=== PATIENT | male | born 1945 | race Caucasian/White ===

== ENCOUNTER → 2019-12-02 09:03 | Outpatient (BNVA) | payer MEDICARE, SELFPAY | PROVIDERS: Family Provider Family Medicine; PCP Nurse Practitioner Family; Visit Provider Nurse Practitioner Family | DX: Z00.00 Encounter for general adult medical examination without abnormal findings (principal); Z12.5 Encounter for screening for malignant neoplasm of prostate; Z13.220 Encounter for screening for lipoid disorders | CPT/HCPCS: 80061; G0103 ==

== ENCOUNTER → 2020-03-16 09:20 | Outpatient (BNVA) | payer MEDICARE, SELFPAY | PROVIDERS: Family Provider Family Medicine; PCP Nurse Practitioner Family; Visit Provider Nurse Practitioner Family | DX: M19.90 Unspecified osteoarthritis, unspecified site (principal); M19.042 Primary osteoarthritis, left hand; R53.83 Other fatigue; M25.50 Pain in unspecified joint; M19.032 Primary osteoarthritis, left wrist | CPT/HCPCS: 80048; 84550 ==

== ENCOUNTER → 2020-05-19 11:12 | Outpatient (BNVA) | payer MEDICARE, SELFPAY | PROVIDERS: Family Provider Family Medicine; PCP Nurse Practitioner Family; Visit Provider Registered Nurse | DX: C44.91 Basal cell carcinoma of skin, unspecified (principal) | CPT/HCPCS: 88305 ==

== ENCOUNTER → 2020-06-27 10:54 | Outpatient (BNVA) | payer MEDICARE, SELFPAY | PROVIDERS: Family Provider Family Medicine; PCP Nurse Practitioner Family; Visit Provider Dermatology | DX: C44.91 Basal cell carcinoma of skin, unspecified (principal); L57.0 Actinic keratosis; Z85.828 Personal history of other malignant neoplasm of skin | CPT/HCPCS: 17004; 99203 ==

== ENCOUNTER → 2020-07-08 10:00 | Outpatient (BNVA) | payer MEDICARE, SELFPAY | PROVIDERS: Family Provider Family Medicine; PCP Nurse Practitioner Family; Visit Provider Nurse Practitioner Family | DX: E07.9 Disorder of thyroid, unspecified (principal); R53.83 Other fatigue; Z12.5 Encounter for screening for malignant neoplasm of prostate; Z85.46 Personal history of malignant neoplasm of prostate | CPT/HCPCS: 80048; 84153; 84443; 85025 ==

== ENCOUNTER → 2020-07-13 09:48 | Outpatient (BNVA) | payer MEDICARE, SELFPAY | PROVIDERS: Family Provider Family Medicine; PCP Nurse Practitioner Family; Visit Provider Dermatology | DX: C44.91 Basal cell carcinoma of skin, unspecified (principal); D48.9 Neoplasm of uncertain behavior, unspecified | CPT/HCPCS: 11642; 12052; 88304; 88305 ==

== ENCOUNTER → 2020-07-26 07:55 | Outpatient (BNVA) | payer MEDICARE, SELFPAY | PROVIDERS: Family Provider Family Medicine; PCP Nurse Practitioner Family; Visit Provider Dermatology | DX: Z48.02 Encounter for removal of sutures (principal) | CPT/HCPCS: 99024 ==

== ENCOUNTER → 2020-12-26 09:55 | Outpatient (BNVA) | payer MEDICARE, SELFPAY | PROVIDERS: Family Provider Family Medicine; PCP Nurse Practitioner Family; Visit Provider Nurse Practitioner Family | DX: R53.83 Other fatigue (principal); C61 Malignant neoplasm of prostate; R35.1 Nocturia; R68.89 Other general symptoms and signs | CPT/HCPCS: 80048; 84443; G0103 ==

== ENCOUNTER → 2020-12-28 09:32 | Outpatient (BNVA) | payer MEDICARE, SELFPAY | PROVIDERS: Family Provider Family Medicine; PCP Nurse Practitioner Family; Visit Provider Nurse Practitioner Family | DX: R53.83 Other fatigue (principal); C61 Malignant neoplasm of prostate; R35.1 Nocturia; R68.89 Other general symptoms and signs | CPT/HCPCS: 80061 ==

== ENCOUNTER → 2021-05-08 14:43 | Outpatient (BNVA) | payer MEDICARE, SELFPAY | PROVIDERS: Family Provider Family Medicine; PCP Nurse Practitioner Family; Visit Provider Nurse Practitioner Family | DX: M25.50 Pain in unspecified joint (principal); M10.9 Gout, unspecified | CPT/HCPCS: 84550 ==

== ENCOUNTER → 2021-05-23 16:43 | Outpatient (BNVA) | payer MEDICARE, SELFPAY | PROVIDERS: Family Provider Family Medicine; PCP Nurse Practitioner Family; Visit Provider Nurse Practitioner Family | DX: Z20.822 Contact with and (suspected) exposure to COVID-19 (principal) | CPT/HCPCS: 87635 ==

== ENCOUNTER → 2021-06-26 08:49 | Outpatient (BNVA) | payer MEDICARE, SELFPAY | PROVIDERS: Family Provider Family Medicine; PCP Nurse Practitioner Family; Visit Provider Nurse Practitioner Family | DX: R53.83 Other fatigue (principal); C61 Malignant neoplasm of prostate; J01.01 Acute recurrent maxillary sinusitis | CPT/HCPCS: 85025; 86665; G0103 ==

== ENCOUNTER → 2021-07-04 10:56 | Outpatient (BNVA) | payer MEDICARE, SELFPAY | PROVIDERS: Family Provider Family Medicine; PCP Nurse Practitioner Family; Visit Provider Nurse Practitioner Family | DX: R53.83 Other fatigue (principal); R06.02 Shortness of breath; R05 Cough; T50.B95A Adverse effect of other viral vaccines, initial encounter | CPT/HCPCS: 80053; 86140 ==

== ENCOUNTER → 2021-07-06 10:07 | Outpatient (BNVA) | payer MEDICARE, SELFPAY | PROVIDERS: Family Provider Family Medicine; PCP Nurse Practitioner Family; Visit Provider Nurse Practitioner Family | DX: J12.82 Pneumonia due to coronavirus disease 2019 (principal); R06.02 Shortness of breath; R53.83 Other fatigue; T50.B95A Adverse effect of other viral vaccines, initial encounter; U07.1 COVID-19 | CPT/HCPCS: 87635 ==

== ENCOUNTER 2021-07-28 13:10 | Outpatient (CLI) | payer MEDICARE, SELFPAY ==
--- NOTE | 2021-07-28 13:30 | USCV_ITS ---
Abhijit Perez Age: 76 Gender: M : 1945 Exam Date: 07/28/2021 13:30 Ordering Phys: Jimenez Rodriguez M.D ([email or web address]) Technologist: Exam Location: [facility] [place] Indication: HISTORY: VARICOSE VEINS PROCEDURES: The venous duplex Doppler examination of both lower extremities was performed in the standard fashion. Venous duplex imaging was performed in only the left lower extremity. The following venous structures were evaluated: common femoral vein,the greater saphenous vein, superficial femoral vein, and the popliteal vein and ptv.serial compression, augmentation maneuvers, and spectral Doppler flow evaluation were performed. An evaluation for venous insufficiency was also completed. FINDINGS: All deep veins demonstrated compressibility without evidence of intraluminal thrombus or increased echogenicity. Significant venous reflux were noted in the greater saphenous vein segments bilaterally CONCLUSIONS 1. No evidence of DVT in the above-mentioned identifiable veins. 2. Significant venous reflux of greater than 500 ms were noted at the distal and below-knee greater saphenous vein segments on the right side. These venous segments were measuring 0.37 and 0.39 cm in diameter, at a depth of 1.81 and 1.14 cm respectively. 3. Significant venous reflux of greater than 500 ms were noted throughout the greater saphenous vein segments on the left side. The reflux time we are waiting anywhere from 794 to 3080 ms. The venous segments were measuring anywhere from 0.37 to 0.74 cm in diameter. All the above knee segments were greater than 1 cm deep from the surface. 4. No significant venous reflux were noted in the small saphenous veins on both sides Dr Austin Holland MD [facility] (Electronically Signed) Final Date: 31 July 2021 09:41 S
== END 2021-07-28 13:11 | disposition home or self-care (01) ==
LOC: US 13:15
PROVIDERS: PCP Nurse Practitioner Family; Visit Provider Internal Medicine
DX: I83.90 Asymptomatic varicose veins of unspecified lower extremity (principal); I87.2 Venous insufficiency (chronic) (peripheral)
CPT/HCPCS: 93970

== ENCOUNTER → 2021-10-09 14:48 | Outpatient (BNVA) | payer MEDICARE, SELFPAY | PROVIDERS: PCP Family Medicine; Visit Provider Nurse Practitioner Family | DX: L02.31 Cutaneous abscess of buttock (principal); L03.317 Cellulitis of buttock | CPT/HCPCS: 87070 ==

== ENCOUNTER → 2021-12-27 09:07 | Outpatient (BNVA) | payer MEDICARE, SELFPAY | PROVIDERS: PCP Nurse Practitioner Family; Visit Provider Nurse Practitioner Family | DX: C61 Malignant neoplasm of prostate (principal); R39.9 Unspecified symptoms and signs involving the genitourinary system; M10.9 Gout, unspecified; I10 Essential (primary) hypertension | CPT/HCPCS: 80053; 81000; G0103 ==

== ENCOUNTER → 2022-05-11 08:40 | Outpatient (BNVA) | payer MEDICARE, SELFPAY | PROVIDERS: PCP Nurse Practitioner Family; Visit Provider Internal Medicine | DX: I87.2 Venous insufficiency (chronic) (peripheral) (principal) | CPT/HCPCS: 99214 ==

== ENCOUNTER → 2022-06-27 11:08 | Outpatient (BNVA) | payer MEDICARE, SELFPAY | PROVIDERS: PCP Nurse Practitioner Family; Visit Provider Nurse Practitioner Family | DX: Z12.5 Encounter for screening for malignant neoplasm of prostate (principal); R53.83 Other fatigue | CPT/HCPCS: 80053; G0103 ==

== ENCOUNTER → 2022-12-28 08:35 | Outpatient (BNVA) | payer MEDICARE, SELFPAY | PROVIDERS: PCP Nurse Practitioner Family; Visit Provider Nurse Practitioner Family | DX: Z12.5 Encounter for screening for malignant neoplasm of prostate (principal) | CPT/HCPCS: G0103 ==

== ENCOUNTER → 2023-01-25 09:59 | Outpatient (BNVA) | payer MEDICARE, SELFPAY | PROVIDERS: PCP Nurse Practitioner Family; Referring Provider Nurse Practitioner Family; Visit Provider Student in an Organized Health Care Education/Training Program | DX: M75.41 Impingement syndrome of right shoulder (principal); M75.81 Other shoulder lesions, right shoulder | CPT/HCPCS: 20610; 73030; 99204; J1040 ==

== ENCOUNTER → 2023-02-18 12:59 | Outpatient (BNVA) | payer MEDICARE, SELFPAY | PROVIDERS: PCP Nurse Practitioner Family; Visit Provider Student in an Organized Health Care Education/Training Program | DX: M75.41 Impingement syndrome of right shoulder (principal); M75.81 Other shoulder lesions, right shoulder | CPT/HCPCS: 99213 ==

== ENCOUNTER → 2023-04-24 11:26 | Outpatient (BNVA) | payer MEDICARE, SELFPAY | PROVIDERS: PCP Nurse Practitioner Family; Visit Provider Nurse Practitioner Family | DX: L81.4 Other melanin hyperpigmentation (principal); D22.5 Melanocytic nevi of trunk; Z71.89 Other specified counseling; L85.3 Xerosis cutis; L57.8 Other skin changes due to chronic exposure to nonionizing radiation; L57.0 Actinic keratosis; Z85.828 Personal history of other malignant neoplasm of skin | CPT/HCPCS: 17000; 17003; 99213 ==

== ENCOUNTER → 2023-05-27 14:33 | Outpatient (BNVA) | payer MEDICARE, SELFPAY | PROVIDERS: PCP Nurse Practitioner Family; Visit Provider Student in an Organized Health Care Education/Training Program | DX: M19.011 Primary osteoarthritis, right shoulder (principal); M75.101 Unspecified rotator cuff tear or rupture of right shoulder, not specified as traumatic | CPT/HCPCS: 99213 ==

== ENCOUNTER 2023-06-17 09:14 | Outpatient (CLI) | payer MEDICARE, SELFPAY ==
--- NOTE | 2023-06-17 09:30 | MR_ITS ---
WS: [id number] MRI RIGHT SHOULDER NONCONTRAST TECHNIQUE: Sagittal T2, coronal T1, T2 and proton density imaging. Axial gradient PDE imaging. CLINICAL INFORMATION: right shoulder pain, rule out rotator cuff COMPARISON: Radiograph January 25, 2023 FINDINGS: Moderate to advanced degenerative arthritis AC joint. Subacromial spurring. Small amount of subacromi al subdeltoid fluid. Impingement on the distal supraspinatus. Tendinopathy involving supraspinatus. I nsertional tear distal supraspinatus. Tendinopathy infraspinatus with small undersurface tear. Normal subscapularis. Normal biceps tendon in the bicipital groove. Normal biceps labral anchor. Dege nerative fraying involving the glenoid labrum. Advanced narrowing at the glenohumeral articulation. F luid in the subcoracoid bursa. Biceps tendon appears intact within the bicipital groove. MR/MR shoulder RT wo con* [id number] IMPRESSION: 1. 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 2. Impingement of the distal supraspinatus with tendinopathy. Insertional tear distal supraspinatus. 3. Small undersurface tear distal infraspinatus with tendinopathy. 4. Teres minor and subscapularis appear intact. 5. Biceps tendon appears intact in the bicipital groove. 6. Advanced degenerative narrowing at the glenohumeral articulation.
== END 2023-06-17 09:15 | disposition home or self-care (01) ==
PROVIDERS: PCP Nurse Practitioner Family; Visit Provider Student in an Organized Health Care Education/Training Program
DX: M19.011 Primary osteoarthritis, right shoulder (principal); M75.101 Unspecified rotator cuff tear or rupture of right shoulder, not specified as traumatic; S46.811A Strain of other muscles, fascia and tendons at shoulder and upper arm level, right arm, initial encounter; X58.XXXA Exposure to other specified factors, initial encounter
CPT/HCPCS: 73221

== ENCOUNTER → 2023-06-18 15:02 | Outpatient (BNVA) | payer MEDICARE, SELFPAY | PROVIDERS: PCP Nurse Practitioner Family; Visit Provider Nurse Practitioner Family | DX: D48.5 Neoplasm of uncertain behavior of skin (principal) | CPT/HCPCS: 11102; 17000; 99213 ==

== ENCOUNTER → 2023-06-25 09:11 | Outpatient (BNVA) | payer MEDICARE, SELFPAY | PROVIDERS: PCP Nurse Practitioner Family; Visit Provider Nurse Practitioner Family | DX: E78.5 Hyperlipidemia, unspecified (principal); Z12.5 Encounter for screening for malignant neoplasm of prostate; M75.101 Unspecified rotator cuff tear or rupture of right shoulder, not specified as traumatic; M19.011 Primary osteoarthritis, right shoulder; M75.41 Impingement syndrome of right shoulder | CPT/HCPCS: 80053; 80061; 99214; G0103 ==

== ENCOUNTER → 2023-07-04 09:49 | Outpatient (BNVA) | payer MEDICARE, SELFPAY | PROVIDERS: PCP Nurse Practitioner Family; Visit Provider Clinical Nurse Specialist Adult Health | DX: Z01.818 Encounter for other preprocedural examination (principal); E78.5 Hyperlipidemia, unspecified | CPT/HCPCS: 85025 ==

== ENCOUNTER → 2023-07-08 09:53 | Outpatient (BNVA) | payer MEDICARE, SELFPAY | PROVIDERS: PCP Nurse Practitioner Family; Visit Provider Dermatology | DX: C44.329 Squamous cell carcinoma of skin of other parts of face (principal) | CPT/HCPCS: 12052; 17311 ==

== ENCOUNTER 2023-07-10 06:12 | Day surgery (SDC) | payer MEDICARE, SELFPAY ==
[2023-07-09 12:01] VITALS: BMI 32.1
[2023-07-10] VITALS (11 sets, daily range): BP systolic 140–196; BP diastolic 76–83; PULSE 55–88; RESP 15–20; TEMP 36.1–36.6; O2SAT 93–100
[2023-07-10] MEDS: sodium chloride 0.9% 1,000 ML 30 ML IV (07:02)
[2023-07-10] MEDS: acetaminophen 1,000 MG/100 ML PIGGYBACK 400 MG IV (07:02)
[2023-07-10] MEDS: ketorolac 30 mg/mL INJ IVP (07:03)
--- NOTE | 2023-07-10 07:09 | ANES.PREANE2 ---
Pre-Anesthetic Assessment Height/Weight: Height 1.84 m Weight 108.862 kg Temp Pulse Resp BP Pulse Ox O2 Del Method 97.4 F L 70 16 140/77 98 Room Air 07/10/23 06:49 07/10/23 06:49 07/10/23 06:49 07/10/23 06:49 07/10/23 06:49 07/10/23 06:49 Preop Diagnosis: Right shoulder rotator cuff tear, subacromial impingment bursitis, ac joint Operation Date: 07/10/23 08:05 Proposed Procedures p RIGHT SHOULDER DIAGNOSTIC AND SURGICAL SUBACROMIAL DECOMPRESSION,ACROMIOCLAVICULAR RESECTION ROTATOR CUFF REPAIR [id number],M75.101,M19.019(Right) - German Yareli, DO s Subacromial Decompression(Right) - German Yareli, DO s AC Joint Resection Acromioclavicular Joint Resection(Right) - German [place], DO s Rotator Cuff Repair - Arthroscopy(Right) - German Yareli DO Familial anesthetic complications: none Was Beta Lars taken within 24 hours: N/A Was Clonidine taken within 24 hours: N/A Last intake: Intake Last Liquid Date 07/09/23 Last Liquid Time 17:00 Last Solid Date 07/09/23 Last Solid Time 17:00 Social No alcohol and No tobacco Exam alert, oriented x 3, clear to auscultation bilaterally and regular rate & rhythm Airway Submandibular: within normal limits Cervical ROM: within normal limits Mallampati: Class II Dentition: full Metabolic Hyperlipidemia Musc/[facility] Osteoarthritis/DJD Anesthetic Plan ASA status: 2 Anesthesia: General and Regional (specify below) (right interscalene) Medications/Allergies Home Medications Medication Instructions Recorded Confirmed Last Taken Type ibuprofen 600 mg tablet 600 mg PO Q8H PRN pain #60 tabs 03/16/20 07/09/23 Unknown Rx vit C 250 mg-vit E 200 unit-zinc 1 cap PO DAILY 06/27/20 07/09/23 07/04/23 History ox 12.5 [id number] capsule (ICaps AREDS2) acetaminophen 325 mg capsule 325 mg PO QID PRN Pain 06/25/23 07/09/23 07/08/23 History (Tylenol) naproxen sodium 220 mg tablet 220 mg PO BID PRN Pain 07/04/23 07/09/23 Unknown History (Aleisabel) pseudoephedrine HCl 30 mg tablet 30 mg PO Q6H 07/09/23 07/09/23 07/09/23 History hydrocodone 5 mg-acetaminophen 325 1 tab PO Q6H PRN pain 5 days #20 07/10/23 Unknown Rx mg tablet tabs ondansetron 4 mg disintegrating 4 mg PO Q8H PRN nausea and 07/10/23 Unknown Rx tablet vomiting 3 days #9 tabs Allergies Allergy/AdvReac Type Severity Reaction Status Date / Time finasteride Allergy Unknown Verified 07/04/23 09:05 Current Medications Generic Name Dose Route Start Last Admin Trade Name Freq PRN Reason Stop Dose Admin Sodium Chloride 1,000 mls @ 30 mls/hr 07/10/23 06:45 07/10/23 07:02 Sodium Chloride 0.9% IV 07/11/23 06:44 30 mls/hr .Q24H MEDINA Administration PFSH Anesthesia Medical History History of nonmelanoma skin cancer Prostate CA Surgical History (Updated 07/04/23 @ 09:16 by Carson Heath NP) History of ankle surgery History of back surgery History of suburethral sling procedure Hx of knee surgery Hx of radical prostatectomy Hx of vein stripping had veins glued together Family History (Updated 07/04/23 @ 09:15 by Carson Heath NP) Family/Other CAD (coronary artery disease) Lung disease Sister CAD (coronary artery disease) Brother CAD (coronary artery disease) Mother Hypertension Lung disease Other Cancer Denies family history of Diabetes Clotting disorder Dementia Chronic kidney disease (CKD) Anesthesia complication Bleeding disorder Stroke Social History Smoking and tobacco status: never smoked Alcohol intake: never Substance/Drug Use: never Adopted: No Lives independently: Yes Household members: spouse Housing: House Marital status: Data Anesthesia Cardiac Studies: No Data to Display
--- NOTE | 2023-07-10 07:51 | P.HPUD_ITS ---
Surgery/Procedure H&P Update DATE OF PROCEDURE: July 10, 2023 DATE H&P PERFORMED: 06/25/23 CHANGES TO PREVIOUS DOCUMENTATION: None. No change in HPI from office visit on 06/25/2023. Patient understands risk benefits complication alternatives surgery elects proceed with surgical intervention of her right shoulder diagnostic and surgical arthroscopy with subacromial decompression and AC joint resection, rotator cuff repair. Patient understands and agrees with current plan. All questions answered. PREOP DIAGNOSIS: Right shoulder rotator cuff tear, subacromial impingment bursitis, ac joint PRIMARY INDICATION FOR PROCEDURE: Right shoulder rotator cuff tear, subacromial impingement bursitis, AC joint arthritis PLANNED PROCEDURE: Operation Date: 07/10/23 08:05 Proposed Procedures p RIGHT SHOULDER DIAGNOSTIC AND SURGICAL SUBACROMIAL DECOMPRESSION,ACROMIOCLAVICULAR RESECTION ROTATOR CUFF REPAIR [id number],M75.101,M19.019(Right) - German [place], DO s Subacromial Decompression(Right) - German [place], DO s AC Joint Resection Acromioclavicular Joint Resection(Right) - German [place], DO s Rotator Cuff Repair - Arthroscopy(Right) - German [place], DO
[2023-07-10] MEDS: HYDROmorphone 1 mg/mL INJ 1 mL 0.5 MG IVP (07:54)
[2023-07-10] MEDS: ceFAZolin 2,000 MG in sodium chloride 0.9% (plus) 50 ML 100 MG IV (08:02)
--- NOTE | 2023-07-10 08:04 | ANES.PROC ---
Anesthesia Procedures Procedure/Date: 07/10/23 Nerve Block ^: Nerve Block 1: Main Anesthesia: general anesthesia Time Out Performed: Yes Consent: requested by attending/covering physician, from patient, risks and benefits reviewed and patient agrees to proceed Nerve block location: interscalene (right) Anesthesia monitors applied: pulse oximetry, EKG, BP cuff and oxygen Nerve block position: semi sitting Anesthetic Used: ropivicaine 0.5% Amount of anesthesia used (mL): 30 Ultrasound used to: recognize landmarks and visualize and ID brachial plexus Nerve Stimulator Used?: No Interscalene/Femoral BLK: 2 stimuplex 22 g needle used for position and inplane approach Injection: neg aspiration of heme Patient Tolerated Procedure: well Complications: none
[2023-07-10] MEDS: EPINEPHrine 1 mg/mL INJ 2 MG XX (08:46)
--- NOTE | 2023-07-10 10:20 | P.OP_ITS ---
Brief Operative Note Date of procedure: 07/10/23 Pre-op diagnosis: Right shoulder rotator cuff tear, subacromial impingement bu rsitis, AC arth Post-op diagnosis: same (Labral tearing, biceps tendon tear) Procedure Done: Right shoulder diagnostic and surgical arthroscopy, subacromial decompression, AC joint resection, rotator cuff repair, biceps tenotomy, Labral debridement. Surgeon: German Downs Estimated blood loss (mL): 10 Complications: none Post-op Plan: Orthopedic discharge instructions: Keep left arm and shoulder sling and no activity for the next 6 weeks. To prevent frozen shoulder you can take arm out of sling and let it hang down and do pendulum swings. No weight-bear to the operative extremity. Ice and elevate as needed for pain and swelling Take pain medication as prescribed Take antinausea medication as needed May supplement for pain with ibuprofen [id number] as needed Patient should leave dressing on in place for 72 hours, at that time may remove all dressings leave sutures in place may rinse incisions with warm soapy water pat dry and redress with dry dressing. No baths or soaks Follow-up in the orthopedic office in 2 weeks Contact the office for any questions or concerns Condition: stable Disposition: PACU Coding Level of Care Code Acute Code for Darcyg Parmjit
--- NOTE | 2023-07-10 10:26 | PM.PACU ---
PACU note Narrative: Patient transferred to PACU in stable condition. Pain is well controlled. shoulder Dressing on , dry and in place. Patient's operative arm is in a shoulder immobilizer. Patient is awake and alert and able to respond to my questions accordingly. Patient's fingers are warm with good perfusion. Normal cap refill under 2 seconds. Unable to assess further range of motion in arm due to sling. Unable to assess sensation due to residual localized anesthetic. Exam: awake Disposition: discharged
--- NOTE | 2023-07-10 13:31 | PM.OP ---
Operative Report Date of procedure: July 10, 2023 Pre-op diagnosis: Preop Diagnosis Right shoulder rotator cuff tear, subacromial impingment bursitis, ac joint Electrical Plumbing Supervisor: Olaf Downs PA-C Electrical Plumbing Supervisor was necessary for execution of the case to hold rotation of the extremity as well as to help with instrumentation and repair of the rotator cuff as well as to assist in wound closure. Procedure: Post-op diagnosis: Right shoulder labral tear Right shoulder biceps tendon tear Right shoulder rotator cuff tear Right shoulder AC joint arthritis Right shoulder subacromial bursitis/impingement Procedure done: Right shoulder diagnostic and surgical arthroscopy with arthroscopic rotator cuff repair Right shoulder diagnostic and surgical arthroscopy biceps tenotomy Right shoulder diagnostic and surgical arthroscopy labral debridement Right shoulder diagnostic and surgical arthroscopy acromioclavicular joint resection Right shoulder diagnostic and surgical arthroscopy subacromial decompression (acromioplasty and bursectomy) Surgeon: German Downs DO Estimated blood loss: 10mL IV fluids: 600mL Implants: Arthrex 4.75mm biocomposite swivel lock double loaded with FiberWire and fiber tape Arthrex 5.5mm biocomposite swivel lock Arthrex scorpion and suture tape Complications: None Condition: stable Disposition: same day Brief History: Patient been seen and worked up in the outpatient setting for right shoulder pain.? Pt had an MRI which showed findings below.? Patient's failed conservative treatment and has substantial weakness.? Patient's exhausted and failed all conservative treatment of therapy which made his shoulder pain worse as well as failed cortisone injection. We talked about treatment options far as nonoperative and operative intervention..? We talked about risk benefits complication alternatives surgical nonsurgical treatment options.? Understanding risk of surgery he agrees to proceed with surgical intervention.? All questions have been answered at this time.? Patient elects proceed with surgery and consent obtained in office. MR/MR shoulder RT wo con* [id number] IMPRESSION: ? 1.? 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 2.? Impingement of the distal supraspinatus with tendinopathy. Insertional tear distal supraspinatus. 3.? Small undersurface tear distal infraspinatus with tendinopathy. 4.? Teres minor and subscapularis appear intact. 5.? Biceps tendon appears intact in the bicipital groove. 6.? Advanced degenerative narrowing at the glenohumeral articulation. Procedure: Patient seen evaluated in the preoperative holding area.? Consent reviewed and signed with patient.? Once again reviewed patient's MRI results as well as? planned surgical intervention.? Correct extremity marked.? Patient seen evaluated by anesthesia department received regional anesthesia.? Once ready for surgery was taken back to the operative suite.? Patient then subsequently underwent anesthesia per the anesthesia department was transported onto the OR table.? Patient was then placed into a lateral decubitus position with a beanbag and was appropriately secured to the bed.? All bony prominences well-padded.? Patient then had the right upper extremity was then prepped and draped in standard orthopedic fashion.? Patient received appropriate preoperative antibiotics.? Final timeout performed. The right upper extremity was then held in hanging from traction utilizing sterile technique.? Next started with standard diagnostic and surgical arthroscopy with posterior portal position introduced arthroscope into the glenohumeral joint.? Visualized the glenohumeral joint I then introduced a spinal needle within the rotator cuff interval to confirm appropriate anterior portal placement.? Once this was confirmed I then made my small incision and then introduced my arthroscopic shaver into the glenohumeral joint.? After thorough debridement was clearly evident patient had a significant erythema as well as positive liftoff sign of the biceps anchor and biceps tendon tear as it was pulled within the joint.? Decision at this time was made to perform a biceps tenotomy.? Introduced a thermal wand and a biceps tenotomy was performed to completion With appropriate release.? Next I evaluated the subscapularis tendon which was intact. ?Next there was significant labral tearing at biceps anchor and circumferential.? ? I then subsequently utilized a a arthroscopic shaver and thermal wand to perform a labral debridement.? This point time I then visualized the glenohumeral joint.? The glenohumeral joint was found to have grade 2-3? chondromalacia throughout.? Infrapatellar pouch was free of loose bodies from viewing the posterior portal.? Next a visualized the rotator cuff superiorly and there was found to be a medium sized tear of the supraspinatus tendon.? I utilized a spinal needle to glendy this location.?? This completed my work within the glenohumeral joint all fluid was suctioned free of the joint.? ?Next I reintroduced the arthroscope posteriorly.? And went to the subacromial space.? I established my lateral working portal at the site of which my spinal needle was marking of the rotator cuff tear.? Thermal wand was then introduced laterally and then I subsequently performed extensive bursectomy of the subacromial space.? Patient had a large anterior bone spur.? At this point time I proceeded with my AC joint resection thermal wand was used and track to the anterior edge of the acromion and then tracked all the way to the AC joint.? Once identified the AC joint this was very arthritic in nature.? Thermal wand was placed anteriorly to establish appropriate plane for AC joint resection.? Once appropriate margins and anterior inferior and anterior capsule was released I then introduced arthroscopic shaver and a bur and performed AC joint resection of both the acromion to cope plane at the AC joint and a distal clavicle resection was then performed totaling 1 cm in size and was confirmed.? This completed my AC joint resection and I then introduced the arthroscopic shaver laterally while continuing to view posteriorly.? I then performed an acromioplasty to complete my subacromial decompression prior to fixing the rotator cuff tear.? Next the arthroscopic shaver was then used previous spinal needle spot that is marked the small hole in the rotator cuff this was consistent with a medium full-thickness tear.? It was determined this would be amendable for a single medial row anchor and a single lateral row anchor utilizing 4 individual passes with a double loaded suture to obtain appropriate spread and repair of this tendon. Minimal rotator cuff retraction was noted. As result I establish my lateral passport cannula.? I then utilized arthroscopic shaver to debride the footprint and create appropriate bleeding bone. Next I utilized a spinal needle to have perpendicular approach with impaction of the medial anchor. Once satisfied with my position a small accessory portal incision was made I introduced the punch and created to be perpendicular right along my medial footprint off the articular margin this was then impacted to appropriate depth and patient had satisfactory bone quality to accommodate for 4.75 swivel lock. I then subsequently impacted a double loaded Arthrex 4.75 swivel lock for my single medial row anchor. Excellent fixation was noted. Sutures were then individually grasped and passed in sequential fashion with appropriate spread from anterior to posterior. next I marked by swivel lock position for the lateral row anchor.? Fiber tape was then loaded into a 5.5mm swivel lock I then subsequently punched given softer bone laterally and then subsequently placement 5.5mm swivel lock while maintaining appropriate tension and repair of rotator cuff and this was advanced with excellent fixation I then had a final confirmation of appropriate repair of the supraspinatus rotator cuff tendon tear.? Sutures were then cut with an arthroscopic suture cutter and subsequently evaluated the rotator cuff repair.? This was confirmed to be in satisfactory and the rotator cuff was then stressed and the shoulder was taken through ROM and repair satisfactory. ?I then switched the arthroscope to the lateral portal to confirm this tension-free repair.? I took the shoulder through range of motion and the rotator cuff repair was stable and moved as a unit. ?Next I then introduced the arthroscopic shaver posteriorly to complete my subacromial decompression appropriate complaining all the way up to the lateral edge of the acromion.? This completed the surgery.? All fluid was suctioned from the shoulder.? All instruments were removed.? The lateral incision was then closed with 2-0 Vicryl and nylon stitches.? As well as the portal sites closed with portal nylon stitches.? Xeroform 4 x 4's ABD and tape was then applied to the right shoulder and was placed into a shoulder abduction pillow sling for rotator cuff repair.? Patient was then awakened from anesthesia and then taken back to PACU in stable condition.? Patient tolerated procedure without any issues. Disposition: Patient taken back in stable condition recovering well.? Dressings on in place clean dry and intact.? Sling in place with abduction pillow. Will be nonweightbearing to the right upper extremity.? Follow rotator cuff repair protocol.? Patient to follow-up with me in the office in 2 weeks.? Patient will receive appropriate discharge instruction as well as pain medication postoperatively.? All questions answered.? We will contact the office for any questions or concerns.
--- NOTE | 2023-07-10 15:04 | ANE.PACU2 ---
Inpatient post-anesthesia follow up: Airway intact: Yes Vital signs: Temperature 97.8 F Pulse Rate 55 Respiratory Rate 16 Blood Pressure 177/82 Pulse Oximetry 95 Oxygen Delivery Me thod Room Air Oxygen Flow Rate 6 Fraction of Inspir ed Oxygen Hydration adequate: Yes Nausea and vomiting: No Pain level: 1 Mental status: Baseline
== END 2023-07-10 11:40 | disposition home or self-care (01) ==
PROVIDERS: PCP Nurse Practitioner Family; Visit Provider Student in an Organized Health Care Education/Training Program
PROC: (CPT 29805; principal; 2023-07-10 07:55)
PROC: (CPT 29826; 2023-07-10 07:55)
PROC: (CPT 29827; 2023-07-10 07:55)
PROC: (CPT 24310; 2023-07-10 07:55)
PROC: (CPT 29826; 2023-07-10 07:55)
DX: S43.401A Unspecified sprain of right shoulder joint, initial encounter (principal); S46.211A Strain of muscle, fascia and tendon of other parts of biceps, right arm, initial encounter; M75.101 Unspecified rotator cuff tear or rupture of right shoulder, not specified as traumatic; M13.811 Other specified arthritis, right shoulder; M25.811 Other specified joint disorders, right shoulder; X58.XXXA Exposure to other specified factors, initial encounter; E78.5 Hyperlipidemia, unspecified; Z85.46 Personal history of malignant neoplasm of prostate; Z85.828 Personal history of other malignant neoplasm of skin
CPT/HCPCS: 29826; 29827; 29828; C1713; J0131; J0171; J0690; J1100; J1170; J1885; J2405; J2704; J2710; J2795; J3010; J3490; J7030

== ENCOUNTER → 2023-07-30 08:42 | Outpatient (BNVA) | payer MEDICARE, SELFPAY | PROVIDERS: PCP Nurse Practitioner Family; Visit Provider Student in an Organized Health Care Education/Training Program | DX: Z98.890 Other specified postprocedural states (principal) | CPT/HCPCS: 99024 ==

== ENCOUNTER → 2023-09-17 08:36 | Outpatient (BNVA) | payer MEDICARE, SELFPAY | PROVIDERS: PCP Nurse Practitioner Family; Visit Provider Nurse Practitioner Family | DX: Z85.828 Personal history of other malignant neoplasm of skin (principal); L57.8 Other skin changes due to chronic exposure to nonionizing radiation; L81.4 Other melanin hyperpigmentation; D22.5 Melanocytic nevi of trunk; L57.0 Actinic keratosis | CPT/HCPCS: 17000; 99213 ==

== ENCOUNTER → 2023-09-24 14:20 | Outpatient (BNVA) | payer MEDICARE, SELFPAY | PROVIDERS: PCP Nurse Practitioner Family; Visit Provider Student in an Organized Health Care Education/Training Program | DX: Z98.890 Other specified postprocedural states (principal); R20.0 Anesthesia of skin; R20.2 Paresthesia of skin | CPT/HCPCS: 99024; 99213 ==

== ENCOUNTER → 2023-10-29 09:51 | Outpatient (BNVA) | payer MEDICARE, SELFPAY | PROVIDERS: PCP Nurse Practitioner Family; Visit Provider Nurse Practitioner Family | DX: Z85.828 Personal history of other malignant neoplasm of skin (principal); D48.5 Neoplasm of uncertain behavior of skin; L57.0 Actinic keratosis; L57.8 Other skin changes due to chronic exposure to nonionizing radiation; D22.5 Melanocytic nevi of trunk; L81.4 Other melanin hyperpigmentation; L82.1 Other seborrheic keratosis | CPT/HCPCS: 11102; 17000; 99213 ==

== ENCOUNTER → 2023-11-15 10:24 | Outpatient (BNVA) | payer MEDICARE, SELFPAY | PROVIDERS: PCP Nurse Practitioner Family; Visit Provider Student in an Organized Health Care Education/Training Program | DX: Z98.890 Other specified postprocedural states (principal); R20.0 Anesthesia of skin; R20.2 Paresthesia of skin | CPT/HCPCS: 99213 ==

== ENCOUNTER → 2023-12-06 09:19 | Outpatient (BNVA) | payer MEDICARE, SELFPAY | PROVIDERS: PCP Nurse Practitioner Family; Visit Provider Dermatology | DX: D48.5 Neoplasm of uncertain behavior of skin (principal); C44.529 Squamous cell carcinoma of skin of other part of trunk; L57.0 Actinic keratosis; Z85.828 Personal history of other malignant neoplasm of skin; L57.8 Other skin changes due to chronic exposure to nonionizing radiation; L81.4 Other melanin hyperpigmentation | CPT/HCPCS: 11102; 17000; 17262; 99213 ==

== ENCOUNTER → 2023-12-18 08:47 | Outpatient (BNVA) | payer MEDICARE, SELFPAY | PROVIDERS: PCP Nurse Practitioner Family; Visit Provider Nurse Practitioner Family | DX: Z12.5 Encounter for screening for malignant neoplasm of prostate (principal); I10 Essential (primary) hypertension; E55.9 Vitamin D deficiency, unspecified; R53.83 Other fatigue | CPT/HCPCS: 80053; 80061; 82306; 85025; G0103 ==

== ENCOUNTER → 2024-04-21 10:51 | Outpatient (BNVA) | payer MEDICARE, SELFPAY | PROVIDERS: PCP Nurse Practitioner Family; Visit Provider Nurse Practitioner Family | DX: D48.5 Neoplasm of uncertain behavior of skin (principal); Z85.828 Personal history of other malignant neoplasm of skin; L57.0 Actinic keratosis; L73.8 Other specified follicular disorders | CPT/HCPCS: 11102; 17000; 99213 ==

== ENCOUNTER → 2024-05-29 08:45 | Outpatient (BNVA) | payer MEDICARE, SELFPAY | PROVIDERS: PCP Nurse Practitioner Family; Visit Provider Dermatology | DX: C44.319 Basal cell carcinoma of skin of other parts of face (principal) | CPT/HCPCS: 13132; 17311 ==

== ENCOUNTER → 2024-06-10 13:16 | Outpatient (BNVA) | payer MEDICARE, SELFPAY | PROVIDERS: PCP Nurse Practitioner Family; Visit Provider Dermatology | DX: D48.5 Neoplasm of uncertain behavior of skin (principal); Z48.02 Encounter for removal of sutures | CPT/HCPCS: 11422; 12042 ==

== ENCOUNTER 2024-08-13 11:35 | Outpatient (CLI) | payer MEDICARE, SELFPAY ==
[2024-08-13 12:23] VITALS: BMI 33.9
--- NOTE | 2024-08-13 12:24 | ECG_ITS ---
[facility] Test Date: 2024-08-13 Pat Name: Abhijit Perez Department: Room: Gender: Male Helpdesk Specialist: : 1945 Requested By: Jorge Price Order Number: [id number] Indira MD: Austin Holland M.D. Interpretive Statements Exercise/sestamibi/sestamibi stress test PROCEDURE: The baseline electrocardiogram showed normal sinus rhythm with normal ST-Ts poor R wave progression. At the baseline, the patient's blood pressure was 119/78 mm Hg with a heart rate of 80. The patient exercised for 4 minutes and 45 seconds on a standard Shamar protocol. Patient attained a maximum heart rate of 152 beats per minute(106% of the maximum predicted heart rate) with a blood pressure at the peak exercise of 169/104 mm Hg. The EKG at the peak exercise revealed no significant changes. Patient did not have any chest pain or any significant arrhythmis with the exercise Sestamibi was injected 1 minute prior to the peak exercise During the recovery phase, there were no new changes. Lung unchanged pre/post procedure; Intra procedure shortness of breath; Symptoms resoled by discharge Blood pressure at the end of the recovery phase was 159/65 mm Hg with a heart rate of 85 per minute. CONCLUSION: 1. No significant EKG changes with the [treadmill exercise 2. No exercise-induced chest pain or cardiac arrhythmia 3. Good impaired exercise tolerance, attained a maximum of METs 4. Sestamibi/Sestamibi perfusion results pending; see separate report. Electronically Signed On 08-16-2024 20:48:25 CDT by Austin Holland M.D. [id number]
[2024-08-13 12:50] VITALS: BP 136/68; PULSE 83
== END 2024-08-13 11:36 | disposition home or self-care (01) ==
PROVIDERS: PCP Nurse Practitioner Family; Visit Provider Nurse Practitioner Family
DX: R06.02 Shortness of breath (principal)
CPT/HCPCS: 93017

== ENCOUNTER → 2024-09-10 10:53 | Outpatient (BNVA) | payer MEDICARE, SELFPAY | PROVIDERS: PCP Nurse Practitioner Family; Visit Provider Nurse Practitioner Family | DX: Z12.5 Encounter for screening for malignant neoplasm of prostate (principal); C61 Malignant neoplasm of prostate | CPT/HCPCS: 86664; 86665; G0103 ==

== ENCOUNTER → 2024-09-29 09:38 | Outpatient (BNVA) | payer MEDICARE, SELFPAY | PROVIDERS: PCP Nurse Practitioner Family; Referring Provider Nurse Practitioner Family; Visit Provider Specialist | DX: R20.0 Anesthesia of skin (principal); R20.2 Paresthesia of skin; G56.03 Carpal tunnel syndrome, bilateral upper limbs | CPT/HCPCS: 95910 ==

== ENCOUNTER → 2024-10-22 15:16 | Outpatient (BNVA) | payer MEDICARE, SELFPAY | PROVIDERS: PCP Nurse Practitioner Family; Visit Provider Specialist | DX: G56.03 Carpal tunnel syndrome, bilateral upper limbs (principal) | CPT/HCPCS: 73130; 99204 ==

== ENCOUNTER → 2024-10-23 08:34 | Outpatient (BNVA) | payer MEDICARE, SELFPAY | PROVIDERS: PCP Nurse Practitioner Family; Visit Provider Nurse Practitioner Family | DX: L82.1 Other seborrheic keratosis (principal); L91.0 Hypertrophic scar; L81.4 Other melanin hyperpigmentation; L57.0 Actinic keratosis | CPT/HCPCS: 17004; 99213 ==

== ENCOUNTER → 2024-12-02 09:11 | Outpatient (BNVA) | payer MEDICARE, SELFPAY | PROVIDERS: PCP Nurse Practitioner Family; Visit Provider Podiatrist Foot & Ankle Surgery | DX: M79.672 Pain in left foot (principal); M72.2 Plantar fascial fibromatosis | CPT/HCPCS: 20550; 73630; 99203; J1100; J3301; J3490 ==

== ENCOUNTER → 2024-12-23 13:38 | Outpatient (BNVA) | payer MEDICARE, SELFPAY | PROVIDERS: PCP Nurse Practitioner Family; Visit Provider Internal Medicine Cardiovascular Disease | DX: R07.9 Chest pain, unspecified (principal); R94.31 Abnormal electrocardiogram [ECG] [EKG]; R53.83 Other fatigue | CPT/HCPCS: 36415; 84443; 93005 ==

== ENCOUNTER → 2025-01-13 10:57 | Outpatient (BNVA) | payer MEDICARE, SELFPAY | PROVIDERS: PCP Nurse Practitioner Family; Visit Provider Podiatrist Foot & Ankle Surgery | DX: M72.2 Plantar fascial fibromatosis (principal); L60.3 Nail dystrophy; M79.672 Pain in left foot | CPT/HCPCS: 99213 ==

== ENCOUNTER 2025-01-20 09:51 | Outpatient (CLI) | payer MEDICARE, SELFPAY ==
--- NOTE | 2025-01-20 10:00 | USCV_ITS ---
Chris Abhijit Age: 79 Gender: M : 1945 Exam Date: 01/20/2025 10:23 Ordering Phys: Samantha Stewart MD ([email or web address]) Technologist: CT Exam Location: [facility] – [place] Indication: sob BP: 100 / 58 HR: 55 Rhythm: Sinus Technical Quality: Adequate MEASUREMENTS (Male / Female) Normal Values 2D ECHO LVOT Diameter 2.2 cm LV Ejection Fraction MOD 4C 60.5 % LV Ejection Fraction MOD 2C 62.7 % LV Ejection Fraction 2C AL 65.5 % LA Diameter 4.6 cm RA Systolic Volume 4C AL 45.3 ml RA Systolic Volume 4C MOD 44.4 ml LA Sys Volume AL 47.0 cm cubed LA Sys Volume Index AL 19.7 cm cubed/m squared Aorta at Sinotubular Diameter 3.1 cm M-MODE LA Ao Ratio MM 2.1 AV Cusp Separation MM 2.1 cm DOPPLER AV Peak Velocity 306.0 cm/s LVOT Peak Velocity 94.0 cm/s AV Area Cont Eq vti 3.1 cm squared AV Area Cont Eq pk 1.1 cm squared MV Peak Velocity 95.0 cm/s MV Area PHT 2.6 cm squared Mitral E to A Ratio 0.9 TV Peak Velocity 243.5 cm/s TR Peak Velocity 263.0 cm/s TR Peak Gradient 27.7 mmHg PV Peak Velocity 133.0 cm/s FINDINGS Left Ventricle Normal left ventricular size, systolic function and wall thickness, with no regional wall motion abnormalities. Left ventricular ejection fraction is estimated at 60 %. Grade I/IV diastolic dysfunction (abnormal relaxation filling pattern), normal to mildly elevated filling pressures. Right Ventricle The right ventricle is normal in size and function. Right Atrium The right atrium is normal in size. Left Atrium The left atrium is normal in size. Mitral Valve Structurally normal mitral valve without significant stenosis or prolapse. There is no mitral regurgitation. Aortic Valve Mild aortic valve calcification. No aortic valve stenosis. Mild aortic valve regurgitation. Tricuspid Valve Structurally normal tricuspid valve without significant stenosis or regurgitation. Pulmonary artery systolic pressure is normal. Pulmonic Valve Structurally normal pulmonic valve without significant stenosis. There is no pulmonic regurgitation. Pericardium Normal pericardium without effusion. Aorta Normal ascending aorta dimension. IVC The inferior vena cava appears normal. CONCLUSIONS Normal left ventricular size, systolic function and wall thickness, with no regional wall motion abnormalities. Left ventricular ejection fraction is estimated at 60 %. Grade I/IV diastolic dysfunction (abnormal relaxation filling pattern), normal to mildly elevated filling pressures. Mild aortic valve calcification. No aortic valve stenosis. Mild aortic valve regurgitation. There is no pericardial effusion. Right atrial pressure is around 5 mm of mercury. Samantha Stewart MD (Electronically Signed) Final Date: 20 January 2025 22:49 S
== END 2025-01-20 09:52 | disposition home or self-care (01) ==
LOC: RAD 09:55
PROVIDERS: PCP Nurse Practitioner Family; Visit Provider Internal Medicine Cardiovascular Disease
DX: R06.02 Shortness of breath (principal); R93.1 Abnormal findings on diagnostic imaging of heart and coronary circulation; I35.8 Other nonrheumatic aortic valve disorders; I35.1 Nonrheumatic aortic (valve) insufficiency; R94.2 Abnormal results of pulmonary function studies
CPT/HCPCS: 93306; 94010; 94726; 94729

== ENCOUNTER → 2025-02-26 09:19 | Outpatient (BNVA) | payer MEDICARE, SELFPAY | PROVIDERS: PCP Nurse Practitioner Family; Visit Provider Nurse Practitioner Family | DX: L91.0 Hypertrophic scar (principal); L82.1 Other seborrheic keratosis; L81.4 Other melanin hyperpigmentation; L57.8 Other skin changes due to chronic exposure to nonionizing radiation; D22.5 Melanocytic nevi of trunk; D48.5 Neoplasm of uncertain behavior of skin; L57.0 Actinic keratosis | CPT/HCPCS: 11102; 17000; 99214 ==

== ENCOUNTER → 2025-04-19 08:28 | Outpatient (BNVA) | payer MEDICARE, SELFPAY | PROVIDERS: PCP Nurse Practitioner Family; Visit Provider Nurse Practitioner Family | DX: N39.0 Urinary tract infection, site not specified (principal); A41.9 Sepsis, unspecified organism | CPT/HCPCS: 81000; 85025; 87086 ==

== ENCOUNTER → 2025-06-23 13:59 | Outpatient (BNVA) | payer MEDICARE, SELFPAY | PROVIDERS: PCP Nurse Practitioner Family; Visit Provider Internal Medicine Cardiovascular Disease | DX: R06.02 Shortness of breath (principal); I87.2 Venous insufficiency (chronic) (peripheral); R53.83 Other fatigue; C61 Malignant neoplasm of prostate | CPT/HCPCS: 99214 ==

== ENCOUNTER → 2025-06-29 09:07 | Outpatient (BNVA) | payer MEDICARE, SELFPAY | PROVIDERS: PCP Nurse Practitioner Family; Visit Provider Nurse Practitioner Family | DX: L91.0 Hypertrophic scar (principal); L82.1 Other seborrheic keratosis; L81.4 Other melanin hyperpigmentation; L57.8 Other skin changes due to chronic exposure to nonionizing radiation; D22.5 Melanocytic nevi of trunk; Z08 Encounter for follow-up examination after completed treatment for malignant neoplasm; Z85.828 Personal history of other malignant neoplasm of skin; L57.0 Actinic keratosis; D48.5 Neoplasm of uncertain behavior of skin | CPT/HCPCS: 11102; 17004; 99214 ==

== ENCOUNTER → 2025-07-14 10:24 | Outpatient (BNVA) | payer MEDICARE, SELFPAY | PROVIDERS: PCP Nurse Practitioner Family; Visit Provider Dermatology | DX: L82.1 Other seborrheic keratosis (principal); L57.8 Other skin changes due to chronic exposure to nonionizing radiation; Z08 Encounter for follow-up examination after completed treatment for malignant neoplasm; Z85.828 Personal history of other malignant neoplasm of skin; D04.62 Carcinoma in situ of skin of left upper limb, including shoulder; D48.5 Neoplasm of uncertain behavior of skin; L57.0 Actinic keratosis | CPT/HCPCS: 11102; 17000; 17262; 99213 ==

== ENCOUNTER → 2025-07-27 11:46 | Outpatient (BNVA) | payer MEDICARE, SELFPAY | PROVIDERS: PCP Nurse Practitioner Family; Visit Provider Registered Nurse | DX: M17.12 Unilateral primary osteoarthritis, left knee (principal) | CPT/HCPCS: 80053; 85025; 85651; 86140 ==

== ENCOUNTER → 2025-11-05 08:43 | Outpatient (BNVA) | payer MEDICARE, SELFPAY | PROVIDERS: PCP Nurse Practitioner Family; Visit Provider Nurse Practitioner Family | DX: L44.8 Other specified papulosquamous disorders (principal); L82.1 Other seborrheic keratosis; L57.8 Other skin changes due to chronic exposure to nonionizing radiation; Z08 Encounter for follow-up examination after completed treatment for malignant neoplasm; Z85.828 Personal history of other malignant neoplasm of skin; L82.0 Inflamed seborrheic keratosis; Z78.9 Other specified health status; R20.8 Other disturbances of skin sensation; L29.89 Other pruritus; L53.8 Other specified erythematous conditions; L57.0 Actinic keratosis | CPT/HCPCS: 17000; 17110; 99213 ==